=== PATIENT | male | born 1985 ===

== ENCOUNTER 2019-04-30 21:33 | Emergency (ER) | payer BC ==
[2019-04-30] MEDS ORDERED: Ketorolac 60 MG/2 ML SDV IM ONE (22:45)
--- NOTE | 2019-04-30 22:50 | EDM.PDOC ---
ED HPI GENERAL MEDICAL PROBLEM - General Chief Complaint: Headache Stated Complaint: HEAD AND NECK PAIN Time Seen by Provider: 04/30/19 22:10 - History of Present Illness INITIAL COMMENTS - FREE TEXT/NARRATIVE: HISTORY AND PHYSICAL: History of present illness: The patient is a 33-year-old male who does have a history of chronic headaches due to his neck problems but has had spinal fusion in his cervical area in 2016 and after that did not have any headaches and presents with a headache that has been ongoing for the last 10 days. He says it is at bilateral temples and in the middle of his for head and when it's persisting for several hours it does radiate to the top and back of his head but does not originate there. This had no fever chills nausea vomiting no sinus congestion or seasonal allergies and no chest pain shortness of breath. The patient is only taken one dose of medications [id number], Excedrin, which he took and his headache went from a 10 over 10 to a 5/10 and because it did not read the headache he came here for evaluation. He came mostly at the assistance of his mother was concerned about heart problems in the family although the patient has no chest pain shortness of breath or cardiac symptomatology. He says that he had the headache all last week and then on Tuesday it was completely gone and then came back again. He has not had his vision checked in quite some time but he has not had any recent trauma. He has no back pain no neurosensory changes or weakness in his extremities and no GI symptoms. He says to my student that he is mostly here at the insistence of his mom. Review of systems: As per history of present illness and below otherwise all systems reviewed and negative. Past medical history: As per history of present illness and as reviewed below otherwise noncontributory. Surgical history: As per history of present illness and as reviewed below otherwise noncontributory. Social history: No reported history of drug or alcohol abuse. Family history: As per history of present illness and as reviewed below otherwise noncontributory. Physical exam: General: Well-developed well-nourished mildly overweight man who is nontoxic and moves easily in the ED. He appears to be in no distress and vital signs are reviewed by me HEENT: Atraumatic, normocephalic, pupils reactive, negative for conjunctival pallor or scleral icterus, mucous membranes moist, throat clear, neck supple, nontender, trachea midline. No cervical adenopathy or nuchal rigidity Lungs: Clear to auscultation, breath sounds equal bilaterally, chest nontender. Heart: S1S2, regula rate and rhythm no overt murmurs Abdomen: Soft, nondistended, nontender. Negative for masses or hepatosplenomegaly. Negative for costovertebral tenderness. Pelvis: Stable nontender. Genitourinary: Deferred. Rectal: Deferred. Extremities: Atraumatic, negative for cords or calf pain. Neurovascular unremarkable. Neuro: Awake, alert, oriented. Cranial nerves II through XII unremarkable. Cerebellum unremarkable. Motor and sensory unremarkable throughout. Exam nonfocal. Diagnostics: CT scan of the head Therapeutics: Toradol After obtaining the CT scan results I did discuss the findings with the patient. He said he had bilateral tubes placed in his ears about 5 or [address] Peñaloza and the left one fell out but he thinks he still has one in the right. On physical exam he does have a persistent eustachian tube seen in the right TM and the TM itself is very dulled it is not reddened and there is no drainage. He has no specific mastoid tenderness or erythema. I told him that I would be conservative and give him a course of antibiotics and have requested that he go back to see Dr. Peñaloza for further care and evaluation. He is comfortable with this care plan. I told him I am not sure if this is new or chronic fluid and that he can further discuss this with the ENT Impression: Headache, improving, mastoid fluid right Definitive disposition and diagnosis as appropriate pending reevaluation and review of above. occiput Pain Score (Numeric/FACES): 5 - Related Data Allergies Allergy/AdvReac Type Severity Reaction Status Date / Time No Known Allergies Allergy Verified 04/30/19 22:03 Home Meds: Home Meds . [No Known Home Meds] 11/25/14 [History] Past Medical History Musculoskeletal History: Reports: Other (See Below) Other Musculoskeletal History: [id number] fusion Endocrine/Metabolic History: Reports: Obesity/BMI 30+ - Past Surgical History Musculoskeletal Surgical History: Reports: Other (See Below) Other Musculoskeletal Surgeries/Procedures:: sinal fusion Social & Family History - Family History Family Medical History: Noncontributory Cardiac: Reports: CAD, Other (See Below) Other Cardiac Family History: father - Tobacco Use Smoking Status *Q: Never Smoker - Recreational Drug Use Recreational Drug Use: No ED ROS GENERAL - Review of Systems Review Of Systems: ROS reveals no pertinent complaints other than HPI. ED EXAM, GENERAL - Physical Exam Exam: See Below (See dictation) Course - Vital Signs Last Recorded V/S: Last Vital Signs Temp 36.7 C 04/30/19 21:50 Pulse 78 04/30/19 21:50 Resp 18 04/30/19 21:50 BP 137/104 H 04/30/19 21:50 Pulse Ox 96 04/30/19 21:50 - Orders/Labs/Meds Meds: Medications Discontinued Medications Generic Name Dose Route Start Last Admin Trade Name Conchita PRN Reason Stop Dose Admin Ketorolac Tromethamine 60 mg 04/30/19 22:45 04/30/19 22:59 Toradol IM 04/30/19 22:46 60 mg ONETIME ONE Administration Departure - Departure Time of Disposition: 00:09 Disposition: Home, Self-Care 01 Condition: Good Clinical Impression: Headache Qualifiers: Headache type: unspecified Headache chronicity pattern: unspecified pattern Intractability: not intractable Qualified Code(s): R51 - Headache Mastoiditis Qualifiers: Laterality: right Qualified Code(s): H70.91 - Unspecified mastoiditis, right ear - Discharge Information Referrals: PCP,None [Primary Care Provider] - Matteo Peñaloza MD [Ordering Only Provider] - Forms: ED Department Discharge Additional Instructions: The following information is given to patients seen in the emergency department who are being discharged to home. This information is to outline your options for follow-up care. We provide all patients seen in our emergency department with a follow-up referral. The need for follow-up, as well as the timing and circumstances, are variable depending upon the specifics of your emergency department visit. If you don't have a primary care physician on staff, we will provide you with a referral. We always advise you to contact your personal physician following an emergency department visit to inform them of the circumstance of the visit and for follow-up with them and/or the need for any referrals to a consulting specialist. The emergency department will also refer you to a specialist when appropriate. This referral assures that you have the opportunity for followup care with a specialist. All of these measure are taken in an effort to provide you with optimal care, which includes your followup. Under all circumstances we always encourage you to contact your private physician who remains a resource for coordinating your care. When calling for followup care, please make the office aware that this follow-up is from your recent emergency room visit. If for any reason you are refused follow-up, please contact the [facility] emergency department at and ask to speak to the emergency department charge nurse. [facility] Primary care- Internal Medicine and Family [address] [address] Please take antibiotics to be given from [facility], Augmentin, and contact Dr. Peñaloza for follow-up as we discussed. Continue to use [id number] meds as you choose for headache pain and please also call and schedule a follow-up appointment with one of our providers in the clinic for further care and evaluation of these headaches. Return to ER as needed and as discussed
--- NOTE | 2019-04-30 23:29 | CT ---
INDICATION: Headache. COMPARISON: None available. TECHNIQUE: CT examination of the head was performed with 3 mm thick axial sections without intravenous contrast. Images were obtained from the vertex of the skull through the skull base, and I examined the images with the brain and bone windows. Please note that all CT scans at this facility use dose modulation, iterative reconstruction, and/or weight-based dosing when appropriate to reduce radiation dose to as low as reasonably achievable. FINDINGS: : The brain is normal in appearance for the patient`s age on today`s study, with no sign of mass lesion, mass effect, hemorrhage, or edema. The ventricles and sulci are normal in appearance for the patient`s age. The visualized portions of the orbits are normal in appearance. The visualized portions of the paranasal sinuses and left mastoid are clear. There is a moderate right mastoid effusion raising the possibility of mastoiditis. The osseous structures are normal in their appearance with no sign of abnormality in the skull base or calvarium. IMPRESSION: Moderate right mastoid effusion consistent with mastoiditis. No sign of any abnormality in the brain. Please note that all CT scans at this facility use dose modulation, iterative reconstruction, and/or weight-based dosing when appropriate to reduce radiation dose to as low as reasonably achievable. Dictated by Bernabe Sanchez MD @ Apr 30 2019 11:25PM Signed by Dr. Bernabe Sanchez @ Apr 30 2019 11:28PM
== END 2019-05-01 00:15 | disposition home or self-care (01) ==
LOC: MW.ED 21:33
DX: H70.91 Unspecified mastoiditis, right ear (principal)
CPT/HCPCS: 70450; 96372; 99284; J1885

== ENCOUNTER 2023-12-06 18:57 | Emergency (ER) | payer BC ==
[2023-12-06 19:41] LABS: BILIRUBIN,URINE NEGATIVE (NEGATIVE); COLOR,URINE YELLOW; GLUCOSE,URINE NEGATIVE (NEGATIVE); KETONES,URINE NEGATIVE (NEGATIVE); LEUKOCYTE ESTERASE,URINE NEGATIVE (NEGATIVE); NITRITE,URINE NEGATIVE (NEGATIVE); OCCULT BLOOD,URINE NEGATIVE (NEGATIVE); PROTEIN,URINE NEGATIVE (NEGATIVE); UROBILINOGEN,URINE 0.2 EU/dL (<2.0)
[2023-12-06] MEDS ORDERED: Ketorolac 30 MG/ML SDV IVPUSH ONE (19:41)
[2023-12-06] MEDS ORDERED: Sodium Chloride 0.9% 1,000 ML IV ONE (19:41)
[2023-12-06 19:42] LABS: APPEARANCE,URINE HAZY
[2023-12-06 20:13] LABS: BASOPHILS ABSOLUTE AUTO 0.04 K/uL (0.00-0.20); BASOPHILS PERCENT AUTO 0.6 % (0.0-1.0); EOSINOPHILS ABSOLUTE AUTO 0.04 K/uL (0.00-0.45); EOSINOPHILS PERCENT AUTO 0.6 % (0.0-6.0); HEMATOCRIT 43.1 % (42.0-52.0); HEMOGLOBIN 15.1 g/dL (14.0-18.0); IMMATURE GRAN ABSOLUTE AUTO 0.02 K/uL (0.00-0.05); IMMATURE GRAN PERCENT AUTO 0.3 % (0.0-0.4); LYMPHOCYTES PERCENT AUTO 36.8 % (24.0-44.0); MEAN CORPUSCULAR HEMOGLOBIN 29.7 pg (28.0-32.0); MEAN CORPUSCULAR VOLUME 84.8 fL (83.0-99.0); MEAN PLATELET VOLUME 10.6 fL (9.4-12.4); MONOCYTES PERCENT AUTO 8.5 % (0.0-8.0); NEUTROPHILS ABSOLUTE AUTO 3.77 K/uL (1.80-7.70); NEUTROPHILS PERCENT AUTO 53.2 % (41.0-71.0); PLATELET COUNT,PLT 254 K/uL (150-400); RED BLOOD CELL COUNT 5.08 M/uL (4.52-5.90); WHITE BLOOD CELL COUNT,WBC 7.07 K/uL (3.9-11.3)
[2023-12-06 20:28] LABS: D-DIMER QUANTITATIVE 0.33 mg/L FEU (0.00-0.50); INR 0.96 (0.86-1.11); PTT,PARTIAL THROMBOPLSTIN TIME 28.6 SEC (23.9-30.7)
[2023-12-06] MEDS ORDERED: Iopamidol 755 MG/ML 500 ML Multipack Bottle IVPUSH STA (20:36)
[2023-12-06 20:46] LABS: A/G RATIO 1.1 (0.9-1.6); ALBUMIN 3.9 g/dL (3.4-5.0); BILIRUBIN TOTAL 0.8 mg/dL (0.2-1.0); CALCIUM 9.3 mg/dL (8.5-10.1); CARBON DIOXIDE,CO2 27.3 mmol/L (21.0-32.0); CREATININE 1.3 mg/dL (0.8-1.3); EST CRCL DRUG DOSING (CG) 77.99 mL/min; POTASSIUM,K 3.5 mmol/L (3.5-5.1); PROTEIN TOTAL,TP 7.4 g/dL (6.4-8.2); TSH ULTRASENSITIVE 2.03 uIU/mL (0.36-3.74)
== END 2023-12-06 23:18 | disposition home or self-care (01) ==
LOC: MW.ED 18:57
DX: R07.9 Chest pain, unspecified (principal); R42 Dizziness and giddiness; M54.9 Dorsalgia, unspecified; E66.9 Obesity, unspecified; Z79.899 Other long term (current) drug therapy
CPT/HCPCS: 36415; 71045; 71275; 74174; 80053; 81003; 84443; 84484; 85025; 85379; 85610; 85730; 96374; 99285; J1885; J7030; Q9967